=== PATIENT | female | born 1960 | race African-American/Black ===

== ENCOUNTER 2017-01-21 18:45 | Emergency (ER) | payer BC ==
[~2017-01-21] VITALS: Ht 170.2 cm; Wt 129.5 kg
[~2017-01-21 18:45] MED LIST: PROTONIX 40MG T40 MG PO
[2017-01-21 18:49] VITALS: TEMP 98
[2017-01-21] MEDS ORDERED: FLONASEALLERGY NS (18:53)
[2017-01-21] MEDS ORDERED: ZOCOR 20MG20 MG PO (18:53)
[2017-01-21 20:20] LABS: BASO % 0.7 % (0.0-2.0); EOS # 0.1 (0.0-0.7); EOS % 2.4 % (0-4.0); GRAN # 1.4 (1.4-6.5); GRAN % 31.7 % (42.2-75.2); HEMATOCRIT 39.1 % (37.0-47.0); HEMOGLOBIN 12.1 g/dl (12.5-16.0); LYMPH # 2.4 (1.2-3.4); LYMPH % 55.8 % (20.0-51.0); MEAN CELL VOLUME 73 fl (80.0-100.0); MEAN CORPUSCULAR HEMOGLOBIN 22 pg (27.0-31.0); MEAN CORPUSCULAR HGB CONC 31 g/dl (33.0-37.0); MEAN PLATELET VOLUME 9.6 fl (7.4-10.4); MONO # 0.4 (0.1-0.6); MONO % 9.2 % (1.7-9.3); PLATELET COUNT 230 K/mm3 (130-400); RED BLOOD COUNT 5.39 M/mm3 (4.10-5.30); WHITE BLOOD COUNT 4.3 K/mm3 (4.8-10.8)
[2017-01-21 20:30] LABS: ADJUSTED CALCIUM 9.7 mg/dL (8.4-10.2); ALBUMIN 4.5 gm/dL (3.5-5.0); BILIRUBIN,TOTAL 0.6 mg/dL (0.0-1.0); CALCIUM 10.1 mg/dL (8.4-10.2); CREATININE, serum 0.9 mg/dL (0.52-1.25); POTASSIUM 3.7 mmol/L (3.4-5.0); TOTAL PROTEIN 7.8 gm/dL (6.4-8.2)
[2017-01-21 21:51] VITALS: BP 146/99; PULSE 56
== END 2017-01-21 21:53 | disposition home or self-care (01) ==
LOC: COL.ER 18:45
PROVIDERS: Emergency Medicine
DX: R51 Headache (principal); E78.5 Hyperlipidemia, unspecified; Z90.710 Acquired absence of both cervix and uterus; Z90.89 Acquired absence of other organs
CPT/HCPCS: J3010

== ENCOUNTER → 2017-06-11 | Outpatient (CLI) | payer BC ==
[~2017-06-11] MED LIST changes: +FLONASEALLERGY NS; +ZOCOR 20MG20 MG PO
== END ==
LOC: MC.RAD 06:55
DX: Z12.31 Encounter for screening mammogram for malignant neoplasm of breast (principal)

== ENCOUNTER → 2017-09-20 | Outpatient (CLI) | payer OTHER, BC | LOC: COL.RAD 15:32 | DX: S42.141A Displaced fracture of glenoid cavity of scapula, right shoulder, initial encounter for closed fracture (principal); M19.011 Primary osteoarthritis, right shoulder ==

== ENCOUNTER 2018-04-10 08:15 | Emergency (ER) | payer BC ==
[~2018-04-10] VITALS: Ht 170.2 cm; Wt 122.7 kg
[2018-04-10 08:21] VITALS: TEMP 97.6
[2018-04-10] MEDS ORDERED: TYLENOL 500MG500 MG PO (08:33)
[2018-04-10 08:47] LABS: BASO % 0.7 % (0.0-2.0); EOS # 0.1 (0.0-0.7); EOS % 2.9 % (0-4.0); GRAN # 1.8 (1.4-6.5); GRAN % 43.5 % (42.2-75.2); HEMOGLOBIN 11.2 g/dl (12.5-16.0); LYMPH # 1.8 (1.2-3.4); LYMPH % 44.2 % (20.0-51.0); MEAN CELL VOLUME 74 fl (80.0-100.0); MEAN CORPUSCULAR HEMOGLOBIN 23 pg (27.0-31.0); MEAN CORPUSCULAR HGB CONC 31 g/dl (33.0-37.0); MEAN PLATELET VOLUME 10.1 fl (7.4-10.4); MONO # 0.4 (0.1-0.6); MONO % 8.5 % (1.7-9.3); PLATELET COUNT 229 K/mm3 (130-400); RED BLOOD COUNT 4.82 M/mm3 (4.10-5.30); REDCELL DISTRIBUTION WIDTH-CV 13.9 % (11.5-14.5)
[2018-04-10 08:48] LABS: HEMATOCRIT 35.8 % (37.0-47.0)
[2018-04-10 08:58] LABS: ALANINE AMINOTRANSFERASE 26 U/L (9-52); ALKALINE PHOSPHATASE 65 U/L (50-136); ANION GAP 8 mmol/L (7-16); AST,SGOT 30 U/L (15-37); BILIRUBIN,TOTAL 0.3 mg/dL (0.0-1.0); BLOOD UREA NITROGEN 17 mg/dL (7-17); CALCIUM 9.4 mg/dL (8.4-10.2); CARBON DIOXIDE 25 mmol/L (22-30); CHLORIDE 109 mmol/L (98-107); CREATININE, serum 0.73 mg/dL (0.52-1.25); GLUCOSE 99 mg/dL (74-106); LIPASE 70 U/L (23-300); POTASSIUM 3.6 mmol/L (3.4-5.0); SODIUM 142 mmol/L (137-145); TOTAL PROTEIN 6.9 gm/dL (6.4-8.2)
[2018-04-10 09:11] LABS: TROPONIN-I < 0.012 ng/mL (0.000-0.035)
[2018-04-10] MEDS ORDERED: ATIVAN 0.50.5 MG/TAB PO (11:18)
[2018-04-10 11:27] VITALS: BP 129/80; PULSE 67
== END 2018-04-10 11:47 | disposition home or self-care (01) ==
LOC: COL.ER 08:15
PROVIDERS: Nurse Practitioner Primary Care
DX: R07.89 Other chest pain (principal); E78.00 Pure hypercholesterolemia, unspecified

== ENCOUNTER 2018-05-27 06:21 | Day surgery (SDC) | payer BC ==
[~2018-05-27] VITALS: Ht 170.2 cm; Wt 116.5 kg
[~2018-05-27 06:21] MED LIST changes: +ATIVAN 0.50.5 MG/TAB PO; +TYLENOL 500MG500 MG PO
[2018-05-27 06:58] VITALS: BP 115/76; PULSE 65; TEMP 97.7
[2018-05-27 08:00] VITALS: BP 104/76; PULSE 55; TEMP 97.2
--- NOTE | 2018-05-27 08:00 | NUR ---
Pt to [facility] via cart from [facility]. Pt drowsy, but awake. Pt ambulates to recliner with stand by assistance. Warm blanket provided. No visitors here with pt at this time. Pt wishing to sleep. Denies pain or nausea. Refused po fluids/food at this time. Call light within reach.
[2018-05-27 08:15] VITALS: BP 110/78; PULSE 46
--- NOTE | 2018-05-27 08:15 | NUR ---
Pt sleeping. Respirations even and unlabored. Call light within reach.
[2018-05-27 08:30] VITALS: BP 115/83; PULSE 47
--- NOTE | 2018-05-27 08:30 | NUR ---
Pt continues to rest. Dozing on and off. Call light within reach.
[2018-05-27 08:45] VITALS: BP 117/82; PULSE 47
--- NOTE | 2018-05-27 08:45 | NUR ---
Discharge instructions reviewed. Pt voices understanding. IV site discontinued with all parts intact. Pt up to dress. Call light within reach.
--- NOTE | 2018-05-27 09:15 | NUR ---
Pt waiting on uber hammer driver in admissions waiting area. Pt awake and alert. Pt dismissed at this time.
== END 2018-05-27 09:15 | disposition home or self-care (01) ==
LOC: SDCO 06:21
DX: Z12.11 Encounter for screening for malignant neoplasm of colon (principal); D12.2 Benign neoplasm of ascending colon; K57.30 Diverticulosis of large intestine without perforation or abscess without bleeding; E78.2 Mixed hyperlipidemia; G93.89 Other specified disorders of brain; D64.9 Anemia, unspecified; Z90.710 Acquired absence of both cervix and uterus
CPT/HCPCS: J2250; J2405; J3010; J7030

== ENCOUNTER → 2018-06-16 | Outpatient (CLI) | payer BC | LOC: MC.RAD 06:51 | DX: Z12.31 Encounter for screening mammogram for malignant neoplasm of breast (principal) ==

== ENCOUNTER → 2019-07-14 | Outpatient (CLI) | payer BC | LOC: MC.RAD 06:54 | DX: Z12.31 Encounter for screening mammogram for malignant neoplasm of breast (principal) ==

== ENCOUNTER 2020-06-07 06:53 | Emergency (ER) | payer BC ==
[~2020-06-07] VITALS: Ht 170.2 cm; Wt 116.8 kg
[2020-06-07 07:23] VITALS: TEMP 98.3
[2020-06-07 08:54] VITALS: BP 139/92; PULSE 60
== END 2020-06-07 08:54 | disposition home or self-care (01) ==
LOC: COL.ER 06:53
DX: M25.551 Pain in right hip (principal); Z90.710 Acquired absence of both cervix and uterus
CPT/HCPCS: J1885

== ENCOUNTER → 2020-06-14 | Outpatient (CLI) | payer BC | LOC: MC.RAD 10:31 | DX: Z00.00 Encounter for general adult medical examination without abnormal findings (principal); N63.20 Unspecified lump in the left breast, unspecified quadrant ==

== ENCOUNTER → 2021-07-02 | Outpatient (CLI) | payer BC | LOC: MC.RAD 10:48 | DX: Z12.31 Encounter for screening mammogram for malignant neoplasm of breast (principal) ==